=== PATIENT | male | born 1950 | race Two or more races ===

== ENCOUNTER 2024-11-20 09:42 | Emergency (ER) | payer OTHER ==
[~2024-11-20] VITALS: Ht 167.6 cm; Wt 61.7 kg
[~2024-11-20 09:42] MED LIST: COZAAR100 MG; TOPROL XL50 M1
[2024-11-20] MEDS ORDERED: VALSARTAN40 MG PO (10:12)
[2024-11-20] MEDS ORDERED: AMLODIPINE (10:15)
[2024-11-20] MEDS ORDERED: BUSPIRONE HCL5 MG (10:16)
[2024-11-20] MEDS ORDERED: CHILDREN'S ASPI81 MG (10:16)
[2024-11-20] MEDS ORDERED: NIFEDIPINE 10 MG CAPSULE PO ONE ×2 (10:30→10:37)
[2024-11-20 11:01] LABS: EOS # 0.04 (0.04-0.54); EOS % 0.5 % (0.7-7.0); HEMOGLOBIN 14.4 g/dL (13.7-17.5); LYMPH # 1.15 (1.18-3.74); LYMPH % 15.7 % (19.3-53.1); MEAN CORPUSCULAR HEMOGLOBIN 28.6 pg (25.6-32.2); MONO # 1.05 (0.24-0.82); NEUT % 68.1 % (34.0-71.1); PLATELET COUNT 170 K/uL (163-369); RED BLOOD COUNT 5.04 M/uL (4.63-6.08); RED CELL DISTRIBUTION WIDTH 12.9 % (11.6-14.4)
[2024-11-20 11:02] LABS: MONO % 14.3 % (4.7-12.5)
[2024-11-20 11:29] LABS: ALBUMIN 3.9 gm/dL (3.4-5.0); BILIRUBIN TOTAL 1.19 mg/dL (0.3-1.2); CREATININE SERUM 0.89 mg/dL (0.70-1.30); GFR 83.11; POTASSIUM 4.51 mEq/L (3.5-5.1); TOTAL PROTEIN 7.9 gm/dL (6.4-8.2)
[2024-11-20 13:33] LABS: URINE APPEARANCE Clear; URINE BILIRRUBIN Negative (NEGATIVE); URINE BLOOD Negative; URINE COLOR Yellow; URINE GLUCOSE Negative (NEGATIVE); URINE KETONE Negative (NEGATIVE); URINE LEUKOCYTE Negative; URINE NITRATE Negative; URINE PROTEIN Negative (NEGATIVE); URINE UROBILINOGEN 0.2 E.U./dl
[2024-11-20 13:47] LABS: URINE RBC 0.5 uL (0.0-20.8); URINE WBC 0 uL (0.0-23.2)
[2024-11-20 13:48] LABS: URINE BACTERIA 0 uL (0.0-1933)
[2024-11-20 13:54] LABS: COVID-19 AG NEGATIVE (NEGATIVE)
[2024-11-20 13:57] LABS: INFLUENZA A AG NEGATIVE (NEGATIVE); INFLUENZA B AG NEGATIVE (NEGATIVE)
== END 2024-11-20 13:16 | disposition home or self-care (01) ==
LOC: ER 09:58
PROVIDERS: General Practice
DX: I10 Essential (primary) hypertension (principal); Z20.822 Contact with and (suspected) exposure to COVID-19

== ENCOUNTER → 2025-02-17 07:01 | Outpatient (CLI) | payer OTHER ==
[~2025-02-17 07:01] MED LIST changes: +AMLODIPINE; +BUSPIRONE HCL5 MG; +CHILDREN'S ASPI81 MG; +VALSARTAN40 MG PO
== END | disposition home or self-care (01) ==
LOC: NUCLEAR 07:00
PROVIDERS: ATTEND Internal Medicine
DX: I11.9 Hypertensive heart disease without heart failure (principal)
CPT/HCPCS: 78452; 93017; A9500

== ENCOUNTER 2025-05-02 12:27 | Emergency (ER) | payer OTHER ==
[~2025-05-02] VITALS: Ht 172.7 cm; Wt 72.6 kg
[2025-05-02 13:22] VITALS: BP 160/86; O2SAT 100
[2025-05-02] MEDS ORDERED: HYDRALAZINE HCL25 MG (13:23)
[2025-05-02] MEDS ORDERED: ENALAPRILAT DIHYDRATE 1.25 MG/ML VIAL IV ONE ×2 (14:00→14:19)
[2025-05-02] MEDS ORDERED: 0.9 % SODIUM CHLORIDE 1,000 ML IV SCH (14:00)
[2025-05-02] MEDS ORDERED: ACETAMINOPHEN 500 MG GEL..CAP PO ONE ×2 (14:00→14:19)
[2025-05-02] MEDS ORDERED: ASPIRIN 325 MG TABLET PO ONE (14:00)
[2025-05-02] MEDS ORDERED: ASPIRIN 325 MG TABLET.EC PO ONE (14:19)
[2025-05-02 14:41] LABS: BASO % 0.7 % (0.1-1.2); EOS # 0.07 (0.04-0.54); EOS % 0.7 % (0.7-7.0); LYMPH # 1.51 (1.18-3.74); LYMPH % 15.5 % (19.3-53.1); MEAN PLATELET VOLUME 11.10 fl (9.4-12.4); MONO # 0.90 (0.24-0.82); MONO % 9.2 % (4.7-12.5); NEUT # 7.17 (1.56-6.13); NEUT % 73.7 % (34.0-71.1); RED CELL DISTRIBUTION WIDTH 12.8 % (11.6-14.4)
[2025-05-02 15:21] LABS: ALT/SGPT 26.0 U/L (12-78); AST/SGOT 16.0 U/L (15-37); BILIRUBIN TOTAL 0.91 mg/dL (0.3-1.2); BUN CREA RATIO 17.0 (7.0-25.0); CREATININE SERUM 0.75 mg/dL (0.70-1.30); GFR 101.25; GLOBULINA 3.2 G/DL (2.4-3.5); GLUCOSE FASTING 162.0 mg/dL (65-100); OSMOLALITY SERUM 272.0 MOSM/KG (275-295)
[2025-05-02 15:38] LABS: INR 1.07
[2025-05-02 15:46] LABS: URINE APPEARANCE Clear; URINE BILIRRUBIN Negative (NEGATIVE); URINE BLOOD Negative; URINE COLOR Yellow; URINE GLUCOSE Negative (NEGATIVE); URINE KETONE Negative (NEGATIVE); URINE LEUKOCYTE Negative; URINE NITRATE Negative; URINE PROTEIN Negative (NEGATIVE); URINE UROBILINOGEN 0.2 E.U./dl
[2025-05-02 16:09] LABS: URINE BACTERIA 0 uL (0.0-1933); URINE CAST 0.00 uL (0.0-1.40); URINE EPITHELIAL CELLS 0.2 uL (0.0-38.8); URINE RBC 1.8 uL (0.0-20.8); URINE WBC 0.2 uL (0.0-23.2)
[2025-05-02] MEDS ORDERED: 8 HOUR PAIN RE650 M1 PO (16:10)
[2025-05-02] MEDS ORDERED: NORFLEX100MG PO (16:10)
== END 2025-05-02 16:29 | disposition home or self-care (01) ==
LOC: ER 12:27
PROVIDERS: General Practice
DX: I16.9 Hypertensive crisis, unspecified (principal); I10 Essential (primary) hypertension; R07.89 Other chest pain; R00.2 Palpitations
CPT/HCPCS: 36415; 71046; 82803; 93005; 96365; 96366; 99283; J3490; J7030